=== PATIENT | male | born 1935 | race Caucasian/White ===

== ENCOUNTER 2016-12-01 17:50 | Emergency (ER) | payer OTHER ==
[2016-12-01 18:21] VITALS: RESP 18; TEMP 99.8
[2016-12-01] MEDS ORDERED: Sodium Chloride 0.9% 1,000 ML PRIMARY IV ONE (18:35)
[2016-12-01] MEDS ORDERED: NORMAL SALINE 10 ML SYRINGE FLUSH IVP PRN (18:35)
[2016-12-01 19:13] LABS: BASOPHILS # (AUTO) 0.01 10*3/UL; BASOPHILS % (AUTO) 0.2 % (0-1); EOSINOPHILS % (AUTO) 0.2 % (0-8); HEMATOCRIT 43.1 % (42.0-52.0); IMM GRAN % (AUTO) 0.2 % (0-5); IMM GRAN# (AUTO) 0.01 10*3/UL; LYMPHOCYTES # (AUTO) 0.48 10*3/uL; MEAN CORPUSCULAR HEMOGLOBIN 34.4 PG (27-31); MEAN CORPUSCULAR HGB CONC 34.8 g/dL (33-37); MEAN PLATELET VOLUME 9.7 FL (7.4-12.2); MONOCYTES # (AUTO) 0.55 10*3/UL (0.3-0.8); MONOCYTES % (AUTO) 9.1 % (5-15); NEUTROPHILS # (AUTO) 4.97 10*3/UL; NEUTROPHILS % (AUTO) 82.3 % (50-80); RDW COEFFICIENT OF VARIATION 13.3 % (11.5-14.5); RED BLOOD COUNT 4.36 10^6/uL (4.70-6.10); WHITE BLOOD COUNT 6.03 10^3/uL (4.8-10.8)
[2016-12-01 19:14] LABS: PLATELET MORPHOLOGY COMMENT NORMAL MORPHOLOGY (NORM)
[2016-12-01 19:37] LABS: BILIRUBIN,TOTAL 0.9 mg/dL (0.3-1.2); BUN/CREATININE RATIO 25.55 (6-20); CALCIUM 8.9 mg/dL (8.7-10.7); CREATININE 0.9 mg/dL (0.70-1.50); POTASSIUM 4.1 meq/L (3.8-5.2); TOTAL PROTEIN 7.8 g/dL (6.1-8.0)
--- NOTE | 2016-12-01 19:49 | DI ---
HISTORY: CVA/TIA. COMPARISON: 04/13/2016. TECHNIQUE: Contiguous axial images of the brain were obtained and submitted for interpretation. FINDINGS: There is senescent change with atrophy. There is no acute territorial infarct, intracrani al hemorrhage, or mass effect. There is no hydrocephalus, or significant midline shift. The basal c isterns are not effaced. There is density noted in both middle cerebral arteries, but this is largely unchanged compared the p rior examination. 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 MRI could be helpful. There is a septum cavum pellucidum. The visualized paranasal sinuses and mastoids appear relatively well-aerated. 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 This is unchanged. IMPRESSION: 1. No intracranial hemorrhage. MRI is recommended.
[2016-12-01 20:41] LABS: BILIRUBIN,URINE NEGATIVE (NEG); CLARITY,URINE CLEAR (CLEAR); GLUCOSE, URINE (UA) NEGATIVE (NEG); LEUKOCYTE ESTERASE ,URINE NEGATIVE (NEG); NITRATE,URINE NEGATIVE (NEG); OCCULT BLOOD,URINE NEGATIVE (NEG); PH,URINE 8.5 (5.0-8.5); PROTEIN,URINE 100 mg/dl (NEG)
[2016-12-01 20:49] LABS: URINE SAMPLE TYPE VOIDED SPECIMEN
--- NOTE | 2016-12-01 21:10 | PDOC ---
General Adult HPI - General Chief Complaint: General Medical Stated Complaint: Vomiting/Weak Date Seen by Provider: 12/01/16 Time Seen by Provider: 18:00 - History of Present Illness Initial Comment: This patient is a very nice 80-year-old gentleman with moderate to severe dementia who lives in a senior living. He was out and about with his daughter today going to get a chiropractic appointment and going to go out to eat and was just not his usual self. He was feeling poorly he was weak and less talkative ultimately he went to have dinner and ended up vomiting multiple times and was brought to the emergency department for further evaluation. He apparently had some difficulty with speech i.e. some possibly garbled speech and decreased mentation compared to his norm. He has had history of urinary tract infection in the past. He is seen by urologist for difficulty with urination and for urinary retention and incontinence. He's also seen by neurologist for a seizure disorder and his progressive dementia. He did not have any nemo seizure type activity. Currently is lying in the gurney he denies any substantial symptoms but is obviously somewhat confused. His daughter states that he still looks a little pale and has no other substantial insight. He apparently never had any flaccid sort of paralysis. Have you received a tetanus shot in the past 10 years?: Unknown - Patient Home Medications Home Medications: Home Medications Carbamazepine 200 mg PO DAILY 04/13/16 Memantine HCl 10 mg PO DAILY 04/13/16 Omeprazole 20 mg PO DAILY 04/13/16 Coconut Oil 1,000 mg PO QD cap 10/14/16 Complete Brain Charge 1 tab PO TID 12/01/16 Dsf 1 tab PO TID 12/01/16 Rolan B Complex 1 unit PO DAILY 12/01/16 Ondansetron Odt [Zofran ODT] 4 mg PO Q6H PRN #10 tab.rapdis 12/01/16 Phosphatidyl Serine 100 mg MC BID 12/01/16 Tamsulosin HCl [Flomax] 0.4 mg PO DAILY 12/01/16 Total Brain 1 tab PO TID 12/01/16 Vitamin D3 & K2 1 tab PO BID 12/01/16 - Patient Allergies Allergies/Adverse Reactions: Allergies Allergy/AdvReac Type Severity Reaction Status Date / Time No Known Allergies Allergy Verified 12/01/16 18:12 Past Medical History - heen HEENT History: Hard of Hearing, Dentures/Partials Cardiovascular History: Angina, Other (please comment) Additional Cardiovasular History: Hx of angina. Hx of cardiac angioplasty. Respiratory History: Other (please comment) Additional Respiratory History: Hx of Right Lower Lobe lobectomy due to lesion found on the lung--lesion was benign per family. Gastrointestinal History: Denies History Genitourinary History: Other (please comment) Additional Genitourinary History: Hx of Bladder Cancer in the --included a tumor resection in the bladder and chemotherapy. 04/13/2016: Hx of cystoscopy done today (under anesthesia) on due to hematuria--pt. sent home with an indwelling catheter. Endocrine History: Denies History Musculoskeletal History: Arthritis, Muscle Weakness, Other (please comment) Additional Musculoskeletal History: Hx of left knee repair with hardware. Neurological History: Seizures, Other (please comment) Additional Neurological History: Hx of epileptic seizures since early adulthood. EEG's have been done with neurology. Hx of Alzheimers. Blood Disorders: Denies History Psychiatric History: Denies History Male Reproductive History: Denies History Cancer History: Other (please comment) In Past Year Been Physically Harmed or Verbally Threatened: No History of MDRO: No Tobacco Use: Never Smoker Alcohol Use: None Substance Use Type: None Previous Surgical History: Yes Type / Date of Surgery: see above Significant Family History: No pertinent family hx Past Medical History Reviewed: Reviewed - No Changes ROS - Limitations ROS Limitations: Mental Impairment Cardiovascular: REPORTS: Denies Cardiac Symptoms Respiratory: REPORTS: Denies Resp Symptoms Musculoskeletal: REPORTS: Denies MS Symptoms Genitourinary: REPORTS: Denies Symptoms General Adult Exam - General Appearance General Appearance: POSITIVE: Alert, Cooperative - HEENT HEENT: POSITIVE: Head Inspection Nml, Eyes Inspection Nml - Respiratory Respiratory: POSITIVE: No Respiratory Distress, Breath Sounds Normal - Cardiovascular Cardiovascular: POSITIVE: Regular Rate & Rhythm, No Murmur - Abdomen Abdomen: Soft: (All Quadrants), Normal Bowel Sounds: (All Quadrants), Denies Tenderness: (All Quadrants) - Extremities Extremity: Non-Tender: (All Extremities), Normal ROM: (All Extremities), Normal Inspection: (All Extremities) - Neurological / Psychological Neurological: POSITIVE: Affect Apporpriate, Other (He is oriented to person not so much to place or time) General Adult Progress - Results Reviewed by me Xrays/CTs/US Reviewed by me: Yes Radiology Findings: CT head shows atrophy no acute intracranial finding Lab Results Reviewed: Yes Lab Results:: Laboratory Results 12/01/16 12/01/16 Range/Units 19:07 20:38 WBC 6.03 (4.8-10.8) 10^3/uL RBC 4.36 L (4.70-6.10) 10^6/uL Hgb 15.0 (14.0-18.0) g/dL Hct 43.1 (42.0-52.0) % MCV 98.9 H (80-90) FL MCH 34.4 H (27-31) PG MCHC 34.8 (33-37) g/dL RDW Std Deviation 47.2 (39-50) fL RDW Coeff of Melanie 13.3 (11.5-14.5) % Plt Count 101 L (140-350) 10*3/uL MPV 9.7 (7.4-12.2) FL Immature Gran % (Auto) 0.2 (0-5) % Neut % (Auto) 82.3 H (50-80) % Lymph % (Auto) 8.0 L (10-50) % [place] % (Auto) 9.1 (5-15) % Eos % (Auto) 0.2 (0-8) % Baso % (Auto) 0.2 (0-1) % Immature Gran # (Auto) 0.01 10*3/UL Neut # (Auto) 4.97 10*3/UL Lymph # (Auto) 0.48 10*3/uL [place] # (Auto) 0.55 (0.3-0.8) 10*3/UL Eos # (Auto) 0.01 10*3/UL Baso # (Auto) 0.01 10*3/UL WBC Morphology Comment Normal morphology (NORM) Plt Morphology Comment Normal morphology (NORM) RBC Morph Comment Normal morphology (NORM) Sodium 140 (135-145) meq/L Potassium 4.1 (3.8-5.2) meq/L Chloride 102 (98-112) meq/L Carbon Dioxide 26 (23-33) meq/L Anion Gap 12 (5-20) BUN 23 H (7-22) mg/dL Creatinine 0.9 (0.70-1.50) mg/dL Estimated GFR (>60 ml/min/1.73m(2)) BUN/Creatinine Ratio 25.55 H (6-20) Glucose 127 H (78-110) mg/dL Calculated Osmolality 295.0 H (267-292) mOsm/kg Calcium 8.9 (8.7-10.7) mg/dL Total Bilirubin 0.9 (0.3-1.2) mg/dL AST 69 H (21-57) IU/L ALT 39 (21-72) IU/L Alkaline Phosphatase 55 (38-126) IU/L Total Protein 7.8 (6.1-8.0) g/dL Albumin 4.5 (3.5-4.8) g/dL Globulin 3.3 (2.50-4.10) g/dL Albumin/Globulin Ratio 1.30 (1.3-2.0) mg/g Ur Collection Type Voided specimen Urine Color Yellow Urine Clarity Clear (CLEAR) Urine pH 8.5 (5.0-8.5) Ur Specific [place] 1.015 (1.005-1.030) Urine Protein 100 (NEG) mg/dl Urine Glucose (UA) Negative (NEG) mg/dL Urine Ketones Trace (NEG) Urine Occult Blood Negative (NEG) Urine Nitrate Negative (NEG) Urine Bilirubin Negative (NEG) Urine Urobilinogen 1.0 (0.2) EU/dL Ur Leukocyte Esterase Negative (NEG) Urine RBC None (NONE) /hpf Urine WBC None (NONE) Ur Squamous Epith Cells None (NONE) Ur Renal Epithelial Cell None (NONE) Urine Crystals None Urine Bacteria None (NONE) Urine Casts Few (NONE) Urine Mucus Many (NONE) Urine Trichomonas None (NONE) Urine Yeast None (NONE) Ur Culture Indicated? Culture not set - Patient's Progress MDM / ED Course: This patient's labs look a little dehydrated. He has a normal white cell count he has normal electrolytes normal kidney function but he does have an isolated elevated BUNs. He otherwise is looking better and feeling better after some IV fluid and at this point I don't see anything necessitating admission or further workup at this point. He did have some garbled speech or some difficulty with speaking and has a negative CT scan of his head I think this is all likely related to dementia I have encouraged his daughter to bring him into primary care provider in the next day or 2 to reevaluate. I also told her is not a bad idea to go back and visited with the neurologist again and see if there is anything that has been missed or not. I've also told her that he may be having some gastroenteritis which may have caused his vomiting he may have a couple of difficult days ahead. She is encouraged to help him push fluids Cipollone fluids and take some Zofran if needed for nausea the next couple days. Patient Care Time - Estimated PCT Patient Care Time (In Minutes): 30 Vital Signs - Recent Vital Signs Vital Signs: Vital Signs (Last 8 hours) Temp Pulse Resp BP Pulse Ox 12/01/16 18:00 99.8 F H 107 H 18 127/77 91 - VS Reviewed Vital Signs Reviewed: Yes Discharge Clinical Impression: Gastroenteritis, Dehydration Vomiting Qualifiers: Vomiting type: unspecified Vomiting Intractability: non-intractable Nausea presence: with nausea Qualifier Code: (R11.2) Nausea with vomiting, unspecified Dementia Qualifiers: Dementia type: unspecified type Dementia behavioral disturbance: without behavioral disturbance Qualifier Code: (F03.90) Unspecified dementia without behavioral disturbance Constipation Qualifiers: Constipation type: unspecified constipation type Qualifier Code: (K59.00) Constipation, unspecified Discharge Disposition: Discharged to Home Condition: Good Prescriptions / Orders: Ondansetron Odt [Zofran ODT] 4 mg PO Q6H PRN #10 tab.rapdis Patient Instructions Given at Discharge: Dehydration (ED), Gastroenteritis (ED) Additional Instructions: Encourage fluid intake, Follow-up with primary care provider in the next 1-2 days Use Zofran as needed for nausea Return here if any increasing symptoms worsening or other concerns or complaints. Follow Up With: ELISSA SHIRLEY [Primary Care Provider] -
[2016-12-01] MEDS ORDERED: Ondansetron ODT Tab 4 MG TAB PO SCH (21:30)
== END 2016-12-01 21:37 | disposition home or self-care (01) ==
LOC: ER 17:50
DX: E86.0 Dehydration (principal); K52.9 Noninfective gastroenteritis and colitis, unspecified; K59.00 Constipation, unspecified; F03.90 Unspecified dementia, unspecified severity, without behavioral disturbance, psychotic disturbance, mood disturbance, and anxiety; R53.1 Weakness; R47.89 Other speech disturbances; R11.2 Nausea with vomiting, unspecified
CPT/HCPCS: 70450; 80053; 81001; 81003; 85025; 96360; 96361; 99283; J7030